=== PATIENT | male | born 1995 | race Caucasian/White ===

== ENCOUNTER 2017-09-07 08:16 | Day surgery (SDC) | payer OTHER ==
[~2017-09-07] VITALS: Ht 180.3 cm; Wt 86.2 kg
[2017-09-07 08:36] VITALS: BP 137/74
[2017-09-07] MEDS ORDERED: NORCO 5/3251 TABLET PO (12:33)
[2017-09-07 13:33] VITALS: BP 144/66
[2017-09-07 14:47] VITALS: BP 128/61
== END 2017-09-07 14:50 | disposition home or self-care (01) ==
LOC: SDC 08:16
PROC: 0HBT0ZZ Excision of Right Breast, Open Approach (ICD-10-PCS; principal; 2017-09-07)
DX: N62 Hypertrophy of breast (principal); F17.210 Nicotine dependence, cigarettes, uncomplicated
CPT/HCPCS: 88305; J0690; J1100; J1170; J1885; J2250; J2405; J3010